=== PATIENT | female | born 1970 | race African-American/Black ===

== ENCOUNTER 2020-01-14 10:54 | Emergency (ER) | payer BC, MEDICARE ==
[~2020-01-14] VITALS: Ht 167.6 cm; Wt 63.5 kg
[2020-01-14 11:10] VITALS: BP 132/78
--- NOTE | 2020-01-14 11:16 | NUR ---
49/F C/O LEFT CHEST PAIN RADIATING TO LEFT NECK AND BL SHOULDERS X 3 DAYS. ALSO WITH RLQ PAIN X 3 DAYS. STATES THE PAIN MIGRATES DIFFERENT PARTS OF BODY. STATES NAUSEA. DENIES FEVER, DIARRHEA, SOB. AMBULATORY STEADY FROM LOBBY TO BED 06. VSS. CONNECTED TO BEDSIDE MONITOR. HX- HTN, HLD NKA
[2020-01-14 11:39] LABS: BASOPHILS % (AUTO) 0.8 % (0.0-2.0); EOSINOPHILS # (AUTO) 0.1 K/uL (0-0.4); HEMATOCRIT 39.7 % (36-48); HEMOGLOBIN 13.2 g/dL (12.0-16.0); LYMPHOCYTES # (AUTO) 1.7 K/uL (2.5-16.5); LYMPHOCYTES % (AUTO) 33.1 % (20.5-51.1); MEAN CORPUSCULAR HEMOGLOBIN 29 pg (27-31); MEAN CORPUSCULAR HGB CONC 33 g/dL (33-37); MEAN CORPUSCULAR VOLUME 86.4 fL (80-94); MONOCYTES # (AUTO) 0.6 K/uL (0.8-1.0); MONOCYTES % (AUTO) 11.5 % (1.7-9.3); NEUTROPHILS # (AUTO) 2.7 K/uL (1.8-7.7); NEUTROPHILS % (AUTO) 52.6 % (42.2-75.2); PLATELET COUNT (AUTO) 292 K/uL (140-450); RED BLOOD CELL COUNT(AUTO) 4.59 MIL/uL (4.20-5.40); RED CELL DISTRIBUTION WIDTH 14.1 % (11.6-13.7); WHITE BLOOD COUNT (AUTO) 5.2 K/uL (4.8-10.8)
[2020-01-14 11:57] LABS: ALBUMIN 3.7 g/dL (3.4-5.0); ANION GAP 12.9 (8-16); CARBON DIOXIDE 26.9 mmol/L (21-32); CREATININE 0.6 mg/dL (0.6-1.3); POTASSIUM 3.8 mmol/L (3.5-5.1); PROTHROMBIN TIME 9.9 secs (10.8-13.4); TOTAL BILIRUBIN 0.3 mg/dL (0.0-1.0)
--- NOTE | 2020-01-14 12:04 | NUR ---
DR. MCKOY SPEAKING W/ PT AT BEDSIDE
[2020-01-14 12:39] VITALS: BP 123/81
--- NOTE | 2020-01-14 12:39 | NUR ---
Patient discharged with v/s stable. Written and verbal after care instructions given and explained. Patient alert, oriented and verbalized understanding of instructions. Ambulatory with to car. All questions addressed prior to discharge. ID band removed. Patient advised to follow up with PMD. Patient educated on indication of medication including possible reaction and side effects. Opportunity to ask questions provided and answered.
== END 2020-01-14 12:39 | disposition home or self-care (01) ==
LOC: MED 10:54
DX: R07.9 Chest pain, unspecified (principal); E78.5 Hyperlipidemia, unspecified; F17.210 Nicotine dependence, cigarettes, uncomplicated; I10 Essential (primary) hypertension
CPT/HCPCS: 36415; 71045; 80053; 83880; 84484; 85025; 85610; 85730; 93005; 99285; Q0092